=== PATIENT | male | born 1965 | race Hispanic/Latino ===

== ENCOUNTER 2018-12-31 00:11 | Emergency (ER) | payer OTHER ==
[2018-12-31 00:26] VITALS: BMI 25.8
[2018-12-31 00:30] VITALS: RESP 18
--- NOTE | 2018-12-31 01:04 | ED PDOC ---
HPI: Psych/Substance Abuse Time Seen by Provider: 12/31/18 00:29 Chief Complaint (Nursing): Alcohol Ingestion Chief Complaint (Provider): Alcohol Ingestion History Per: Patient History/Exam Limitations: no limitations Onset/Duration Of Symptoms: Days (x 1) Current Symptoms Are (Timing): Still Present Suicide/Self Injury Attempted (Context): None Modifying Factor(s): Alcohol Additional Complaint(s): 53 year old male with a history of HTN and alcohol abuse presents to the ED for evaluation. Patient states that in the last five days he has been drinking 20 drinks or more each day. Two hours ago, while at home, he began to feel the onset of a panic attack. He reports that his heart started racing and he began sweating and shaking. Patient then took two shots of alcohol and felt better after. Denies HI and SI. PMD: Dr. James Otero Past Medical History Reviewed: Historical Data, Nursing Documentation, Vital Signs Vital Signs: Last Vital Signs Temp 99.0 F 12/31/18 00:26 Pulse 105 H 12/31/18 00:26 Resp 18 12/31/18 00:26 BP 185/123 H 12/31/18 00:26 Pulse Ox 98 12/31/18 00:26 - Medical History PMH: HTN - Surgical History Surgical History: No Surg Hx - Family History Family History: States: Unknown Family Hx - Social History Alcohol: > 2 Drinks/Day - Allergies Allergies/Adverse Reactions: Allergies Allergy/AdvReac Type Severity Reaction Status Date / Time No Known Allergies Allergy Verified 12/31/18 00:26 Review of Systems ROS Statement: Except As Marked, All Systems Reviewed And Found Negative Constitutional: Positive for: Sweats, Other (shakes) Cardiovascular: Positive for: Palpitations Physical Exam - Reviewed Nursing Documentation Reviewed: Yes Vital Signs Reviewed: Yes - Physical Exam Appears: Positive for: Non-toxic, No Acute Distress (mild tremors) Head Exam: Positive for: ATRAUMATIC, NORMAL INSPECTION, NORMOCEPHALIC Skin: Positive for: Normal Color, Warm, Dry Eye Exam: Positive for: EOMI, Normal appearance, PERRL ENT: Positive for: Other (mild tongue fasiculations) Neck: Positive for: Normal, Painless ROM, Supple Cardiovascular/Chest: Positive for: Tachycardia (with regular rhythm) Respiratory: Positive for: Normal Breath Sounds. Negative for: Respiratory Distress Gastrointestinal/Abdominal: Positive for: Normal Exam, Soft. Negative for: Tenderness Extremity: Positive for: Normal ROM (upper and lower extremities). Negative for: Deformity Neurologic/Psych: Positive for: Alert, Oriented (x 3). Negative for: Motor/Sensory Deficits, Aphasia - Laboratory Results Result Diagrams: 12/31/18 01:05 12/31/18 01:05 - ECG O2 Sat by Pulse Oximetry: 98 (RA) Pulse Ox Interpretation: Normal Medical Decision Making Medical Decision Makin:45 A&P: 53 year old hypertensive alcohol presenting with mild alcohol withdrawal Hydrate patient provide banana bag and benzodiazepines. Monitor for resolution of symptoms. Orders: --Alcohol serum --BMP --CBC --EKG --UDS --UA --Ativan 2 mg IV --Dextrose 5% Multivitamin, Thiamine, Folic Acid (1,000 mls) --NS IV 250 mls 05:51 Patient reports improvement of symptoms and is no longer tremulous. He was advis ed to go to [facility] for detox. Scribe Attestation: Documented by Geetha Marquez acting as a scribe for Kofi Rosas MD Provider Scribe Attestation: All medical record entries made by the Scribe were at my direction and personally dictated by me. I have reviewed the chart and agree that the record accurately reflects my personal performance of the history, physical exam, medical decision making, and the department course for this patient. I have also personally directed, reviewed, and agree with the discharge instructions and disposition. Disposition - Clinical Impression Clinical Impression: Alcohol withdrawal - Disposition Referrals: Ashley Jimenez [Outside] Disposition: Routine/Home Disposition Time: 05:51 Condition: IMPROVED Additional Instructions: Please followup in a detox program such as [facility], [place]. Instructions: Alcohol Use - When Is Drinking a Problem?, Alcohol Withdrawal Forms: Ashley Emery ([place])
[2018-12-31] MEDS: Sodium Chloride 0.9% 1,000 ML IV STA (01:08)
[2018-12-31] MEDS: Multivitamin (MVI) 10 ML, Thiamine 100 MG, Folic Acid 1 MG in Dextrose 5%/0.45% NS 1,00... IV ONE (01:19)
[2018-12-31 01:21] LABS: URINE BILIRUBIN NEGATIVE (NEGATIVE); URINE BLOOD NEGATIVE (NEGATIVE); URINE CLARITY CLEAR (Clear); URINE COLOR COLORLESS (YELLOW); URINE GLUCOSE (UA) NEG (NEGATIVE); URINE LEUKOCYTE ESTERASE NEG Leu/uL (Negative); URINE PROTEIN NEGATIVE (NEGATIVE); URINE UROBILINOGEN 0.2-1.0 mg/dL (0.2-1.0)
[2018-12-31 01:22] LABS: BASO # 0.1 K/uL (0.0-0.2); BASO % 0.7 % (0.0-2.0); EOS # 0.1 K/uL (0.0-0.7); EOS % 0.4 % (0.0-4.0); HEMOGLOBIN 16.6 g/dL (12.0-18.0); LYMPH # 1.7 K/uL (1.0-4.3); LYMPH % 14.2 % (20.0-40.0); MEAN CELL VOLUME 100.1 fl (80.0-94.0); MEAN CORPUSCULAR HEMOGLOBIN 33.9 pg (27.0-31.0); MEAN CORPUSCULAR HGB CONC 33.9 g/dL (33.0-37.0); MONO # 0.8 K/uL (0.0-0.8); NEUT # 9.2 K/uL (1.8-7.0); NEUT % 77.7 % (50.0-75.0); RBC 4.9 Mil/uL (4.40-5.90); RED CELL DISTRIBUTION WIDTH 14.5 % (11.5-14.5); WHITE BLOOD COUNT 11.8 K/uL (4.8-10.8)
[2018-12-31 01:29] LABS: BLOOD UREA NITROGEN 8 mg/dl (9-20); CALCIUM 9.1 mg/dL (8.4-10.2); GFR NON-AFRICAN AMERICAN > 60
[2018-12-31 01:47] LABS: BARBITURATES, UR NEGATIVE (NEGATIVE); BENZODIAZEPINES, UR NEGATIVE (NEGATIVE); OPIATES, UR NEGATIVE (NEGATIVE); PHENCYCLIDINE, UR NEGATIVE (NEGATIVE)
[2018-12-31 05:53] VITALS: O2SAT 98
[2018-12-31 06:31] VITALS: BP 140/89; PULSE 91; TEMP 98
--- NOTE | 2018-12-31 08:59 | CARD ---
APPROVED REPORT Date of service: 12/31/2018 EKG Measurement Heart [id number] <Conclusion> Sinus tachycardia Possible Left atrial enlargement Borderline ECG
== END 2018-12-31 06:40 | disposition home or self-care (01) ==
LOC: H.ER 00:11
DX: F10.239 Alcohol dependence with withdrawal, unspecified (principal); F41.0 Panic disorder [episodic paroxysmal anxiety]; I10 Essential (primary) hypertension
CPT/HCPCS: 80048; 80320; 80324; 80345; 80346; 80349; 80353; 80358; 80361; 81003; 83992; 85025; 93005; 96360; 99284; J2060; J3411; J7030; J7042